=== PATIENT | female | born 1945 | race Caucasian/White ===

== ENCOUNTER 2021-03-17 11:53 | Emergency (ER) | payer MEDICARE, SELFPAY ==
--- NOTE | ~2021-03-17 | CT_ITS ---
EXAMINATION: CT ABDOMEN AND PELVIS WITHOUT CONTRAST CLINICAL INFORMATION: White blood cell count 18,000. Diarrhea COMPARISON: None TECHNIQUE: Multidetector volumetric imaging was performed from the superior aspect of the liver through the pubic symphysis. Sagittal and coronal reformatted images were obtained on the technologist's workstation. This CT examination was performed using dose optimization techniques as appropriate, variously including the following: *Automated exposure control *Adjustment of mA and/or kV according to patient size (this includes techniques or standardized protocols for targeted exams where dose is matched to indication/reason for exam; i.e. extremities or head) *Use of iterative reconstruction technique DLP: 834 mGy-cm FINDINGS: Digital Signal Tower Operator: There is gas within segments of the colon. No disproportionate small bowel dilation. Suspect mixed content within the stomach. No evidence of pneumoperitoneum. LUNG BASES: There are some reticular and confluent interstitial opacities in the juxtapleural lower lung zones. There are a few groundglass opacities. There is bronchiolectasis in the inferior lingula. There is an approximately 0.6 cm juxtapleural nodule in the lateral left lower lobe. There is a small hiatal hernia. There is coronary calcification. LIVER, GALLBLADDER, AND BILIARY TREE: The liver contour is smooth. No suspicious focal liver lesion. There is slight hyperdensity dependent within the gallbladder which may be sludge. There is no significant biliary dilation. PANCREAS: There is no suspicious abnormality. There may be a duodenal diverticulum. SPLEEN: The spleen is not enlarged. No focal abnormality. ADRENAL GLANDS: Normal KIDNEYS AND URETERS: There is no dilation of the urinary collecting system on either side. No suspicious renal mass. There is a punctate calcification in the upper pole the right kidney which I suspect is arterial. BLADDER: The bladder is essentially empty. No large abnormality. GASTROINTESTINAL TRACT: No localized colonic wall thickening. There is some fluid in the proximal colon. The appendix is normal. There are multiple fluid-filled small bowel loops without significant dilation. The stomach contains a moderate amount of mixed attenuation. Mild nonspecific mesenteric stranding. There is a rim calcification in the hernia in the left lower quadrant which is of no acute clinical significance. ABDOMINAL WALL: No significant hernia is appreciated. LYMPH NODES: As described there are some nonspecific mesenteric lymph nodes with some nonspecific stranding in the mesentery. No enlarged pelvic or retroperitoneal lymph nodes. VASCULAR: There is no abdominal aortic aneurysm. There is some atherosclerotic calcification. No significant free intraperitoneal fluid PELVIC VISCERA: The uterus appears within normal limits. No suspicious adnexal mass or collection. OSSEOUS STRUCTURES: There is ankylosis of the posterior aspect of L4 and L5. CT/CT abdomen pelvis wo con IMPRESSION: Fluid-filled loops of bowel. No evidence of abscess or significant obstruction. Nonspecific stranding and mild prominence of the mesenteric lymph nodes. No evidence of urinary or biliary obstruction. The appendix is normal. There is some mild interstitial disease in the visualized lung bases. 0.6 cm left lower lobe pulmonary nodule Recommend correlation with any previous studies performed elsewhere. If there are no previous -recommendations as below According to the UPDATED 2017 Fleischner Society recommendations, the advised follow-up imaging for a single 6-8 mm solid nodule is: LOW RISK PATIENT: CT at 6-12 months, then consider CT at 18-24 months. HIGH RISK PATIENT: CT at 6-12 months, then at 18-24 months.
[2021-03-17 12:03] VITALS: BP 135/65; PULSE 70; RESP 16; TEMP 37.1; O2SAT 94
[2021-03-17 12:10] VITALS: BP 135/65; BP 140/90; PULSE 65; RESP 18; TEMP 37.1; O2SAT 94; BMI 41.2
[2021-03-17 12:19] LABS: Glucose, Whole Blood 93 mg/dL (60-115)
--- NOTE | 2021-03-17 12:54 | ED_ITS ---
HPI - Nausea/Vomiting/Diarrhea General Chief complaint: Nausea/Vomiting/Diarrhea <ELDER Mena Last Filed: 03/17/21 17:52> Stated complaint: LOOSE STOOLS X1WEEK,NAUSEA <ELDER Mena Last Filed: 03/17/21 17:52> Time Seen by Provider: 03/17/21 12:21 <ELDER Mena Last Filed: 03/17/21 17:52> Source: patient <ELDER Mena Last Filed: 03/17/21 17:52> Mode of arrival: ambulatory <ELDER Mena Last Filed: 03/17/21 17:52> History of Present Illness HPI Narrative: 75-year-old female with a past medical history of IBS, presenting to the ED complaining of 1 week of diarrhea with loose/watery stools. Reports initial nausea and emesis, improved at present, now with heartburn. Denies abdominal pain, fever, chills, constipation, dysuria/hematuria, suspicious food intake, recent travel, sick contacts, recent antibiotics, melena/bloody BM <ELDER Mena Last Filed: 03/17/21 17:52> MD elicited complaint: diarrhea <ELDER Mena Last Filed: 03/17/21 17:52> Related Data Allergies/Adverse reactions: Allergies Allergy/AdvReac Type Severity Reaction Status Date / Time Sulfa (Sulfonamide Allergy Severe FEVER Unverified 02/12/21 15:14 Antibiotics) SWEATING [SULFA (SULFONAMIDE ANTIBIOTICS)] acetaminophen [From PERCOCET] Allergy Mild NAUSEA Unverified 02/12/21 15:14 oxycodone [From PERCOCET] Allergy Mild NAUSEA Unverified 02/12/21 15:14 Iodinated Contrast Media Allergy Unknown UNKNOWN Unverified 02/12/21 15:14 [IVP DYE] XRAY DYE Allergy Severe SEVERE Uncoded 02/12/21 15:14 <ELDER Mena Last Filed: 03/17/21 17:52> Review of Systems Review of Systems: Constitutional: No Fever, No Chills, No Fatigue, No Malaise Cardiovascular: No Chest Pain, No SOB, No Edema, No Palpitations Respiratory: No Cough, No Dyspnea Gastrointestinal: + Nausea, No Vomiting, + Diarrhea, No Constipation, No Abdominal pain, No Hematochezia, No Melena Genitourinary: No irregular bleeding, No Dysuria, No Urinary Frequency, No Hematuria, No Flank Pain Musculoskeletal: No joint pain, No Myalgias Skin: No Skin Lesions, No rash Neuro: No Weakness, No Numbness, No Paresthesias,No Headache <ELDER Mena - Last Filed: 03/17/21 17:52> Yes all other systems are reviewed and are negative <ELDER Mena - Last Filed: 03/17/21 17:52> [facility] Past Medical History Attestation statement: The following information was validated with the patient. <ELDER Mena - Last Filed: 03/17/21 17:52> Social History Social History: Social History (System 02/12/21 @ 15:14 by Emily Mendoza) Advance Directives: No Advance Directives Information Provided: Yes <ELDER Mena - Last Filed: 03/17/21 17:52> Physical Exam Vital Signs: Vital Signs: Last Vital Signs Temp 98.8 F 03/17/21 12:10 Pulse 65 03/17/21 12:10 Resp 18 03/17/21 12:10 BP 135/65 03/17/21 12:10 Pulse Ox 94 03/17/21 12:10 Body Mass Index 41.2 <ELDER Mena - Last Filed: 03/17/21 17:52> Vital Signs: Last Vital Signs Temp 98.8 F 03/17/21 12:10 Pulse 65 03/17/21 12:10 Resp 18 03/17/21 12:10 BP 135/65 03/17/21 12:10 Pulse Ox 94 03/17/21 12:10 Body Mass Index 41.2 <Abdullahi Rea MD - Last Filed: 03/17/21 16:25> Const: General: cooperative, healthy appearing and no acute distress <ELDER Mena Last Filed: 03/17/21 17:52> Orientation/consciousness: patient oriented x3 <ELDER Mena - Last Filed: 03/17/21 17:52> Limitations: no limitations <ELDER Mena - Last Filed: 03/17/21 17:52> HENMT: Head: Yes normal to inspection <Shira Sedrick, PA - Last Filed: 03/17/21 17:52> Ears: hearing grossly normal bilaterally <Shira [facility], [place] - Last Filed: 0 03/17/21 17:52> General nose exam: Normal external nose present <Shira [facility] - Last Filed: 03/17/21 17:52> Face and sinus: Yes normal facial exam <Shira Sedrick, PA - Last Filed: 03/17/21 17:52> Eyes: General: appearance normal, both eyes and all related structures <Shira Sedrick, PA - Last Filed: 03/17/21 17:52> EOM: EOMs intact bilaterally <Shira [facility] - Last Filed: 03/17/21 17:52> Neck: Neck: Yes normal visual inspection and Yes no meningeal signs <Shira [facility] - Last Filed: 03/17/21 17:52> Resp: Effort & Inspection: normal respiratory effort and no respiratory distress <Shira [facility] - Last Filed: 03/17/21 17:52> Cardio: Rate: regular rate <Shira Sedrick, PA - Last Filed: 03/17/21 17:52> Heart sounds: S1 normal heart sound present and S2 normal heart sound present <Shira [facility] - Last Filed: 03/17/21 17:52> GI: Inspection: Yes normal to inspection <Shira Sedrick PA - Last Filed: 03/17/21 17:52> Palpation (GI): Soft to palpation, nontender, no guarding and not rigid <Shira Sedrick, PA - Last Filed: 03/17/21 17:52> : General: Yes no CVA tenderness <Shira [facility] - Last Filed: 03/17/21 17:52> Back/Spine/Pelvis: Back: no CVA tenderness <Shira Sedrick, PA - Last Filed: 03/17/21 17:52> Skin: Rashes: no rashes <Shira [facility] - Last Filed: 03/17/21 17:52> Wounds: no wounds <Shira [facility] - Last Filed: 03/17/21 17:52> Neuro: General: patient oriented x3 and no meningeal signs <ELDER Mena - Last Filed: 03/17/21 17:52> Gait exam (Neuro): Normal gait present <ELDER Mena Last Filed: 03/17/21 17:52> Extrem: General: Yes normal to inspection <ELDER Mena - Last Filed: 03/17/21 17:52> Course Course Course Narrative: -1402--leukocytosis of 18.3, labs otherwise unremarkable. Low concern for severe sepsis -1620--UA negative CT abdomen pelvis wo con IMPRESSION: Fluid-filled loops of bowel. No evidence of abscess or significant obstruction. Nonspecific stranding and mild prominence of the mesenteric lymph nodes. No evidence of urinary or biliary obstruction. The appendix is normal. There is some mild interstitial disease in the visualized lung bases. 0.6 cm left lower lobe pulmonary nodule Recommend correlation with any previous studies performed elsewhere. If there are no previous -recommendations as below -5926--patient was able to supply a stool sample, was sent for culture/wbc's and C diff. Patient does not want to wait for results, will DC home without antibiotics, case was discussed with Dr. Rea. Worrisome signs and symptoms and strict return precautions discussed including needed close follow-up and hydration, patient verbalized understanding feel safe for discharge home <ELDER Mena Last Filed: 03/17/21 17:52> I have discussed the case and management with the [facility]. Would try and send stool culture and would hold off on antibiotics at this time. CT shows enteritis with no bowel thickening. <Abdullahi Rea MD - Last Filed: 03/17/21 16:25> MDM - Nausea/Vomiting/Diarrhea MDM Narrative Medical decision making narrative: 75-year-old female with a past medical history of IBS, presenting to the ED complaining of 1 week of diarrhea with loose/watery stools. On exam VSS, NAD/well-appearing, abdomen soft/nontender, no CVAT. Concern for gastroenteritis vs food poisoning vs C diff. lower concern for diverticulitis/appendicitis or pancreatitis Plan: Labs, UA, IVF, stool studies, reassess <ELDER Mena Last Filed: 03/17/21 17:52> Medical Records Attestation: I reviewed the patient's medical records. <ELDER Mena - Last Filed: 03/17/21 17:52> Lab Data Attestation: I reviewed the patient's lab results. <ELDER Mena - Last Filed: 03/17/21 17:52> Result diagrams: : 03/17/21 12:59 03/17/21 12:59 <ELDER Mena - Last Filed: 03/17/21 17:52> Labs: Lab Results 03/17/21 03/17/21 03/17/21 Range/Units 12:15 12:59 12:59 WBC 18.3 H (4.8-10.8) X10*3/uL RBC 4.79 (4.20-5.50) X10*6/uL Hgb 14.6 (12.0-16.0) g/dl Hct 44.6 (37-47) % MCV 93.1 (80-98) fL MCH 30.5 (27.0-33.0) pg MCHC 32.7 (31.0-35.0) g/dl RDW 13.7 (11.0-16.0) % Plt Count 246 (160-400) X10*3/uL MPV 10.1 (9.4-12.3) fL Immature Gran % (Auto) 0.5 H (0.0-0.4) % Neut % (Auto) 58.3 (45-73) % Lymph % (Auto) 10.8 L (20-40) % [place] % (Auto) 8.0 (2-11) % Eos % (Auto) 22.1 H (0-4) % Baso % (Auto) 0.3 (0-2) % Lymph # (Auto) 2.0 (1.2-4.9) X10*3/uL [place] # (Auto) 1.5 H (0.1-1.2) X10*3/uL Eos # (Auto) 4.1 H (0.0-0.4) X10*3/uL Baso # (Auto) 0.1 (0.0-0.2) X10*3/uL Abs Immat Gran (auto) 0.09 H (0.00-0.03) X10*3/uL Absolute Neuts (auto) 10.7 H (2.0-8.3) X10*3/uL Absolute Nucleated RBC 0.000 (0.0-0.012) X10*3/uL Nucleated RBC % (auto) 0.0 (0.0-0.2) /100WBC Sodium 138 (135-145) mmol/L Potassium 3.9 (3.3-5.1) mmol/L Chloride 107 (96-108) mmol/L Carbon Dioxide 22 (22-29) mmol/L Anion Gap 13 (12-20) BUN 13 (9-16) mg/dL Creatinine 0.74 (0.5-1.4) mg/dL Estim Creat Clear Calc 69.7 Estimated GFR > 60 POC Glucose 93 (60-115) mg/dL Random Glucose 100 (60-115) mg/dL Calcium 9.0 (8.4-10.2) mg/dL Magnesium 1.8 (1.6-2.6) mg/dL Total Bilirubin 0.3 (0.0-1.0) mg/dL Direct Bilirubin 0.2 (0.0-0.5) mg/dL AST 18 (5-31) U/L ALT 16 (0-31) U/L Alkaline Phosphatase 79 (39-117) U/L Total Protein 6.3 L (6.5-8.0) g/dL Albumin 3.7 (3.5-5.0) g/dL Lipase 16 (8-78) U/L Urine Color Urine Appearance Urine pH (5.0-8.0) Ur Specific [place] (1.005-1.025) Urine Protein (NEG-TRACE) MG/DL Urine Glucose (UA) (NEG) MG/DL Urine Ketones (NEG) MG/DL Urine Blood (NEG) Urine Nitrite (NEG) Ur Leukocyte Esterase (NEG) 03/17/21 Range/Units 15:18 WBC (4.8-10.8) X10*3/uL RBC (4.20-5.50) X10*6/uL Hgb (12.0-16.0) g/dl Hct (37-47) % MCV (80-98) fL MCH (27.0-33.0) pg MCHC (31.0-35.0) g/dl RDW (11.0-16.0) % Plt Count (160-400) X10*3/uL MPV (9.4-12.3) fL Immature Gran % (Auto) (0.0-0.4) % Neut % (Auto) (45-73) % Lymph % (Auto) (20-40) % [place] % (Auto) (2-11) % Eos % (Auto) (0-4) % Baso % (Auto) (0-2) % Lymph # (Auto) (1.2-4.9) X10*3/uL [place] # (Auto) (0.1-1.2) X10*3/uL Eos # (Auto) (0.0-0.4) X10*3/uL Baso # (Auto) (0.0-0.2) X10*3/uL Abs Immat Gran (auto) (0.00-0.03) X10*3/uL Absolute Neuts (auto) (2.0-8.3) X10*3/uL Absolute Nucleated RBC (0.0-0.012) X10*3/uL Nucleated RBC % (auto) (0.0-0.2) /100WBC Sodium (135-145) mmol/L Potassium (3.3-5.1) mmol/L Chloride (96-108) mmol/L Carbon Dioxide (22-29) mmol/L Anion Gap (12-20) BUN (9-16) mg/dL Creatinine (0.5-1.4) mg/dL Estim Creat Clear Calc Estimated GFR POC Glucose (60-115) mg/dL Random Glucose (60-115) mg/dL Calcium (8.4-10.2) mg/dL Magnesium (1.6-2.6) mg/dL Total Bilirubin (0.0-1.0) mg/dL Direct Bilirubin (0.0-0.5) mg/dL AST (5-31) U/L ALT (0-31) U/L Alkaline Phosphatase (39-117) U/L Total Protein (6.5-8.0) g/dL Albumin (3.5-5.0) g/dL Lipase (8-78) U/L Urine Color YELLOW Urine Appearance CLEAR Urine pH 6.0 (5.0-8.0) Ur Specific [place] <= 1.005 (1.005-1.025) Urine Protein NEG (NEG-TRACE) MG/DL Urine Glucose (UA) NEG (NEG) MG/DL Urine Ketones NEG (NEG) MG/DL Urine Blood NEG (NEG) Urine Nitrite NEG (NEG) Ur Leukocyte Esterase NEG (NEG) <ELDER Mena - Last Filed: 03/17/21 17:52> Lab Results 03/17/21 03/17/21 03/17/21 Range/Units 12:15 12:59 12:59 WBC 18.3 H (4.8-10.8) X10*3/uL RBC 4.79 (4.20-5.50) X10*6/uL Hgb 14.6 (12.0-16.0) g/dl Hct 44.6 (37-47) % MCV 93.1 (80-98) fL MCH 30.5 (27.0-33.0) pg MCHC 32.7 (31.0-35.0) g/dl RDW 13.7 (11.0-16.0) % Plt Count 246 (160-400) X10*3/uL MPV 10.1 (9.4-12.3) fL Immature Gran % (Auto) 0.5 H (0.0-0.4) % Neut % (Auto) 58.3 (45-73) % Lymph % (Auto) 10.8 L (20-40) % [place] % (Auto) 8.0 (2-11) % Eos % (Auto) 22.1 H (0-4) % Baso % (Auto) 0.3 (0-2) % Lymph # (Auto) 2.0 (1.2-4.9) X10*3/uL [place] # (Auto) 1.5 H (0.1-1.2) X10*3/uL Eos # (Auto) 4.1 H (0.0-0.4) X10*3/uL Baso # (Auto) 0.1 (0.0-0.2) X10*3/uL Abs Immat Gran (auto) 0.09 H (0.00-0.03) X10*3/uL Absolute Neuts (auto) 10.7 H (2.0-8.3) X10*3/uL Absolute Nucleated RBC 0.000 (0.0-0.012) X10*3/uL Nucleated RBC % (auto) 0.0 (0.0-0.2) /100WBC Sodium 138 (135-145) mmol/L Potassium 3.9 (3.3-5.1) mmol/L Chloride 107 (96-108) mmol/L Carbon Dioxide 22 (22-29) mmol/L Anion Gap 13 (12-20) BUN 13 (9-16) mg/dL Creatinine 0.74 (0.5-1.4) mg/dL Estim Creat Clear Calc 69.7 Estimated GFR > 60 POC Glucose 93 (60-115) mg/dL Random Glucose 100 (60-115) mg/dL Calcium 9.0 (8.4-10.2) mg/dL Magnesium 1.8 (1.6-2.6) mg/dL Total Bilirubin 0.3 (0.0-1.0) mg/dL Direct Bilirubin 0.2 (0.0-0.5) mg/dL AST 18 (5-31) U/L ALT 16 (0-31) U/L Alkaline Phosphatase 79 (39-117) U/L Total Protein 6.3 L (6.5-8.0) g/dL Albumin 3.7 (3.5-5.0) g/dL Lipase 16 (8-78) U/L Urine Color Urine Appearance Urine pH (5.0-8.0) Ur Specific [place] (1.005-1.025) Urine Protein (NEG-TRACE) MG/DL Urine Glucose (UA) (NEG) MG/DL Urine Ketones (NEG) MG/DL Urine Blood (NEG) Urine Nitrite (NEG) Ur Leukocyte Esterase (NEG) 03/17/21 Range/Units 15:18 WBC (4.8-10.8) X10*3/uL RBC (4.20-5.50) X10*6/uL Hgb (12.0-16.0) g/dl Hct (37-47) % MCV (80-98) fL MCH (27.0-33.0) pg MCHC (31.0-35.0) g/dl RDW (11.0-16.0) % Plt Count (160-400) X10*3/uL MPV (9.4-12.3) fL Immature Gran % (Auto) (0.0-0.4) % Neut % (Auto) (45-73) % Lymph % (Auto) (20-40) % [place] % (Auto) (2-11) % Eos % (Auto) (0-4) % Baso % (Auto) (0-2) % Lymph # (Auto) (1.2-4.9) X10*3/uL [place] # (Auto) (0.1-1.2) X10*3/uL Eos # (Auto) (0.0-0.4) X10*3/uL Baso # (Auto) (0.0-0.2) X10*3/uL Abs Immat Gran (auto) (0.00-0.03) X10*3/uL Absolute Neuts (auto) (2.0-8.3) X10*3/uL Absolute Nucleated RBC (0.0-0.012) X10*3/uL Nucleated RBC % (auto) (0.0-0.2) /100WBC Sodium (135-145) mmol/L Potassium (3.3-5.1) mmol/L Chloride (96-108) mmol/L Carbon Dioxide (22-29) mmol/L Anion Gap (12-20) BUN (9-16) mg/dL Creatinine (0.5-1.4) mg/dL Estim Creat Clear Calc Estimated GFR POC Glucose (60-115) mg/dL Random Glucose (60-115) mg/dL Calcium (8.4-10.2) mg/dL Magnesium (1.6-2.6) mg/dL Total Bilirubin (0.0-1.0) mg/dL Direct Bilirubin (0.0-0.5) mg/dL AST (5-31) U/L ALT (0-31) U/L Alkaline Phosphatase (39-117) U/L Total Protein (6.5-8.0) g/dL Albumin (3.5-5.0) g/dL Lipase (8-78) U/L Urine Color YELLOW Urine Appearance CLEAR Urine pH 6.0 (5.0-8.0) Ur Specific [place] <= 1.005 (1.005-1.025) Urine Protein NEG (NEG-TRACE) MG/DL Urine Glucose (UA) NEG (NEG) MG/DL Urine Ketones NEG (NEG) MG/DL Urine Blood NEG (NEG) Urine Nitrite NEG (NEG) Ur Leukocyte Esterase NEG (NEG) <Abdullahi Rea MD - Last Filed: 03/17/21 16:25> Discharge Plan Discharge Clinical Impression: Enteritis, Pulmonary nodule <ELDER Mena - Last Filed: 03/17/21 17:52> Patient Disposition: Home, Self-Care <ELDER Mena - Last Filed: 03/17/21 17:52> Instructions: Enteritis (ED) <ELDER Mena - Last Filed: 03/17/21 17:52> Additional Instructions: Your CAT shows enteritis/fluid-filled loops of bowel consistent with her diarrhea, no obstruction or focal inflammation/infection Your stools cultures/studies are pending at this time, they should be back in 1- 2 days, you will get a phone call if anything is positive Make sure your pushing fluids at home Your CT scan also showed a 0.6 cm left lower lobe pulmonary nodule, it is recommended that you have a repeat CT scan in 6-12 months to have this looked at/monitored If you develop fever, chills, abdominal pain, persistent or worsening diarrhea, black stool, bloody stool, nausea/vomiting please return to the ED <ELDER Mena - Last Filed: 03/17/21 17:52> Referrals: Abel Swenson MD [Primary Care Provider] - 2 days <ELDER Mena - Last Filed: 03/17/21 17:52>
[2021-03-17 13:03] LABS: MANUAL DIFF FLAG NO
[2021-03-17 13:08] LABS: Basophils Absolute Auto 0.1 X10*3/uL (0.0-0.2); Basophils Percent Auto 0.3 % (0-2); Eosinophils Absolute Auto 4.1 X10*3/uL (0.0-0.4); Eosinophils Percent Auto 22.1 % (0-4); Hematocrit 44.6 % (37-47); Hemoglobin 14.6 g/dl (12.0-16.0); Imm Gran Abs Auto 0.09 X10*3/uL (0.00-0.03); Imm Gran Pct Auto 0.5 % (0.0-0.4); Lymphocytes Percent Auto 10.8 % (20-40); Mean Corpuscular HGB Conc 32.7 g/dl (31.0-35.0); Mean Corpuscular Hemoglobin 30.5 pg (27.0-33.0); Mean Corpuscular Volume 93.1 fL (80-98); Mean Platelet Volume 10.1 fL (9.4-12.3); Monocytes Absolute Auto 1.5 X10*3/uL (0.1-1.2); Neutrophils Absolute Auto 10.7 X10*3/uL (2.0-8.3); Neutrophils Percent Auto 58.3 % (45-73); Platelet Count 246 X10*3/uL (160-400); Red Blood Count 4.79 X10*6/uL (4.20-5.50); Red Cell Distribution Width 13.7 % (11.0-16.0); White Blood Count 18.3 X10*3/uL (4.8-10.8)
[2021-03-17 13:28] LABS: Alanine Aminotransferase 16 U/L (0-31); Albumin Level 3.7 g/dL (3.5-5.0); Alkaline Phosphatase 79 U/L (39-117); Anion Gap 13 (12-20); Aspartate Amino Transferase 18 U/L (5-31); Bilirubin Direct 0.2 mg/dL (0.0-0.5); Bilirubin Total 0.3 mg/dL (0.0-1.0); Blood Urea Nitrogen 13 mg/dL (9-16); Carbon Dioxide 22 mmol/L (22-29); Chloride 107 mmol/L (96-108); Creatinine Clr Calc Pharmacy 69.7; Estimated Glomerular Filt Rate > 60; Glucose Random 100 mg/dL (60-115); Lipase 16 U/L (8-78); Magnesium 1.8 mg/dL (1.6-2.6); Potassium 3.9 mmol/L (3.3-5.1); Sodium 138 mmol/L (135-145); Total Protein 6.3 g/dL (6.5-8.0)
[2021-03-17 15:25] LABS: Glucose Urine UA NEG (NEG); Leukocyte Esterase Urine NEG (NEG); Nitrite Urine NEG (NEG); Specific Gravity - Urine <= 1.005 (1.005-1.025); Urine Blood NEG (NEG); Urine Ketones NEG (NEG); Urine Protein NEG (NEG-TRACE)
[2021-03-17 15:27] LABS: Appearance Urine CLEAR; Color Urine YELLOW
[2021-03-17] MEDS: Famotidine/PF 20 MG/2 ML VIAL IVPUSH (16:14)
[2021-03-17] MEDS: ondansetron HCL 4 MG/2 ML VIAL IVPUSH (16:14)
[2021-03-17] MEDS: 0.9 % Sodium Chloride 1,000 ML 999 ML IVCONT (16:14)
[2021-03-17] MEDS: Magnesium Hydrox/Alum Hydrox 30 ML ORAL.SUSP PO (16:15)
[2021-03-17 18:21] LABS: Leukocytes Stool Qualitative FEW: < 2/OIF (NEGATIVE)
[2021-03-17 18:35] LABS: CDiff Gene PCR NEGATIVE (Negative)
== END 2021-03-17 18:02 | disposition home or self-care (01) ==
PROVIDERS: Physician Assistant; Emergency Provider Emergency Medicine; PCP Internal Medicine
DX: K52.9 Noninfective gastroenteritis and colitis, unspecified (principal); R91.1 Solitary pulmonary nodule
CPT/HCPCS: 36415; 74176; 80048; 80076; 81003; 82947; 83690; 83735; 85025; 87040; 87045; 87046; 87493; 89055; 96361; 96374; 96375; 99283; 99284; J2405